=== PATIENT | female | born 1975 | race Caucasian/White ===

== ENCOUNTER 2021-07-27 02:28 | Emergency (ER) | payer MEDICAID, OTHER ==
[~2021-07-27] VITALS: Ht 165.1 cm; Wt 65.8 kg
[2021-07-27] MEDS ORDERED: NALOXONE HCL 1MG/ML 2ML SYRINGE ONE (03:09)
[2021-07-27] MEDS ORDERED: NALOXONE HCL 1MG/ML 2ML SYRINGE IV ONE (03:30)
[2021-07-27] MEDS ORDERED: DexAMETHasone SOD PHOS 10MG/1ML VIAL INJ IV ONE (03:45)
[2021-07-27 03:47] LABS: Eosinophils # (auto) 0 10 ^3/uL (0-0.8); Lymphocytes # (auto) 0.6 10 ^3/uL (0.4-5.4); Monocytes # (auto) 0.5 10 ^3/uL (0-1.3); Monocytes % (auto) 5.7 % (0.0-12.0); Neutrophils % (auto) 87.2 % (37.0-80.0); Nucleated Red Blood Cells % 0.1 %; Red Blood Cells 4.11 10^6/uL (4.0-5.20)
[2021-07-27 03:52] LABS: Basophils # (auto) 0.1 10 ^3/uL (0-0.2); Basophils % (auto) 0.6 % (0.0-2.0); Eosinophils % (auto) 0.1 % (0.0-7.0); Hematocrit 24.6 % (36.0-46.0); Hemoglobin 7.1 g/dL (12.2-16.2); Lymphocytes % (auto) 6.4 % (10.0-50.0); Mean Corpuscular Hemoglobin 17.3 pg (28.0-32.0); Mean Corpuscular Hgb Conc. 28.8 g/dL (32.0-36.0); Neutrophils # (auto) 7.7 10 ^3/uL (1.6-8.6); White Blood Cell 8.9 10^3/uL (4.4-10.8)
[2021-07-27] MEDS ORDERED: levETIRAcetam 500 MG/5ML INJ IV ONE (03:55)
[2021-07-27] MEDS ORDERED: IOHEXOL 350 MG/ML 100ML IJ ONE (03:55)
[2021-07-27 03:58] LABS: Red Cell Distribution Width 20.8 % (11.8-14.3)
[2021-07-27 04:08] LABS: Urine Bacteria NONE SEEN /hpf (None Seen); Urine Blood Negative /uL (Negative); Urine Hyaline Cast FEW /lpf (0 - 2); Urine Specific Gravity 1.015 (1.001-1.035); Urine WBC 1 /hpf (0 - 5)
[2021-07-27 04:12] LABS: Albumin 2.9 g/dL (3.4-5.0); BUN/Creatinine Ratio 26.7; Calcium 7.7 mg/dL (8.5-10.1); Potassium 3.7 mmol/L (3.5-5.1)
[2021-07-27 04:15] LABS: Alcohol, Urine < 3.0 mg/dL (0-10); Amphetamine Screen, Urine POSITIVE (NEGATIVE); Barbiturate Scree,Urine NEGATIVE (NEGATIVE); Benzodiazephine Screen, Urine NEGATIVE (NEGATIVE); Bilirubin, Total 0.5 mg/dL (0.2-1.0); Cannabinoid Screen, Urine NEGATIVE (NEGATIVE); Cocaine Screen, Urine NEGATIVE (NEGATIVE); Phencyclidine Screen, Urine NEGATIVE (NEGATIVE); Total Protein 6.4 g/dL (6.4-8.2)
[2021-07-27 04:22] LABS: Opiate Scree,Urine NEGATIVE (NEGATIVE)
[2021-07-27 04:46] LABS: INR 1.05 (0.9-1.15)
[2021-07-27 05:32] VITALS: BP 135/53
== END 2021-07-27 05:40 | disposition short-term general hospital (02) ==
LOC: EDBD 02:28 → ER 02:28
DX: S06.6X0A Traumatic subarachnoid hemorrhage without loss of consciousness, initial encounter (principal); R56.9 Unspecified convulsions; R41.82 Altered mental status, unspecified; X58.XXXA Exposure to other specified factors, initial encounter; Y93.89 Activity, other specified; Y92.89 Other specified places as the place of occurrence of the external cause; Y99.8 Other external cause status
CPT/HCPCS: 36415; 70450; 70460; 80053; 80307; 81001; 84484; 84702; 85025; 85610; 96365; 96375; 99285; J1100; J1953; J2310; J7060; Q9967